=== PATIENT | male | born 1950 | race Two or more races ===

== ENCOUNTER → 2017-07-10 | Outpatient (CLI) | payer BC ==
--- NOTE | 2017-07-10 15:50 | RADIOLOGY REPORT (SQ) ---
EXAM DESCRIPTION: MRI THORACIC SPINE WITHOUT COMPLETED DATE/TIME: 07/10/2017 2:59 pm REASON FOR STUDY: WEDGE COMPRESSION FRACTURE OF UNSP THORACIC VERTEBRA, INIT (S22.000A) S22.000A WE DGE COMPRESSION FRACTURE OF UNSP THORACIC VERTEBR COMPARISON: None. TECHNIQUE: Sagittal and Axial imaging includes T1, T2, STIR and gradient echo sequences. LIMITATIONS: Patient motion. FINDINGS: LOCALIZER: No worrisome findings. ALIGNMENT: Normal. VERTEBRAE: Intact. BONE MARROW: Normal. No marrow replacement or reactive changes. HARDWARE: None in the spine. CORD: Normal in size and signal intensity. SOFT TISSUES: No soft tissue masses. THORACIC DISCS T1-T12: No significant spinal stenosis or exit foraminal stenosis. LOWER CERVICAL: Incompletely imaged. No significant spinal stenosis or exit foraminal stenosis. UPPER LUMBAR: See separate report of the same date. OTHER: No other significant finding. IMPRESSION: No acute findings in the thoracic spine. TECHNICAL DOCUMENTATION: JOB ID: [id number] [employer]- All Rights Reserved
--- NOTE | 2017-07-10 15:56 | RADIOLOGY REPORT (SQ) ---
EXAM DESCRIPTION: MRI LUMBAR SPINE WITHOUT COMPLETED DATE/TIME: 07/10/2017 2:59 pm REASON FOR STUDY: WEDGE COMPRESSION FRACTURE OF UNSP LUMBAR VERTEBRA, INIT (S32.000) S22.000A WEDGE COMPRESSION FRACTURE OF UNSP THORACIC VERTEBR COMPARISON: 08/20/2016 TECHNIQUE: Sagittal and Axial imaging includes T1, T2, STIR and gradient echo sequences. Coronal T2/ HASTE imaging. LIMITATIONS: Patient motion. FINDINGS: VISUALIZED UPPER ABDOMEN: Limited evaluation. No acute or suspicious findings suggested. SEGMENTATION: No transitional anatomy. The lowest well-developed disc space is labeled L5-S1. ALIGNMENT: Slight anterolisthesis L2 relative to L1. VERTEBRAE: Interval kyphoplasty at L 1. No acute compression fracture. BONE MARROW: Mild reactive edema superior endplate L2. This is unchanged. DISC SIGNAL: Desiccation multiple levels. POSTERIOR ELEMENTS: Intact. HARDWARE: None in the spine. CORD AND CONUS: Normal in size and signal intensity. Conus at the appropriate level. SOFT TISSUES: No aortic aneurysm seen. No bulky retroperitoneal adenopathy or mass. No paraspinal mas s or fluid. L1-L2: Mild stenosis due to disc bulge. L2-L3: No significant spinal stenosis or exit foraminal stenosis. L3-L4: No significant spinal stenosis or exit foraminal stenosis. L4-L5: Mild stenosis due to disc bulge, ligament thickening and facet arthropathy. L5-S1: Disc bulge and facet arthropathy. No significant spinal stenosis or exit foraminal stenosis. LOWER THORACIC: See separate report of the same date. SACRUM: Visualized upper sacrum intact. OTHER: No other significant findings. IMPRESSION: Mild degenerative changes status post kyphoplasty L 1. No evidence of acute compression fracture. TECHNICAL DOCUMENTATION: JOB ID: [id number]- All Rights Reserved
== END ==
LOC: RAD 13:30
PROVIDERS: ATTEND Student in an Organized Health Care Education/Training Program
DX: S22.000A Wedge compression fracture of unspecified thoracic vertebra, initial encounter for closed fracture (principal); S32.000A Wedge compression fracture of unspecified lumbar vertebra, initial encounter for closed fracture; X58.XXXA Exposure to other specified factors, initial encounter; Y93.9 Activity, unspecified; Y92.9 Unspecified place or not applicable
CPT/HCPCS: 72146; 72148

== ENCOUNTER 2017-11-19 00:03 | Emergency (ER) | payer BC ==
[2017-11-19] MEDS ORDERED: NORMAL SALINE 1000 ML 1,000 ML IV ONE (00:10)
[2017-11-19] MEDS ORDERED: ONDANSETRON HCL INJ/PF 4 MG/2 ML SDV IV ONE (00:10)
[2017-11-19] MEDS ORDERED: NICOTINE 14 MG/24 HR PATCH.TD24 TD ONE (00:10)
--- NOTE | 2017-11-19 00:15 | ER Document Report ---
ED General - General Stated Complaint: OTHER Time Seen by Provider: 11/19/17 00:09 Cannot obtain history due to: Intoxicated Notes: Patient is a 67-year-old male, unknown past medical history who presents acutely intoxicated. Patient was found to be in the parking lot of an [employer] liquor store. He was [facility] to [facility] so [facility] were [facility]. Patient apparently also fell today while at home striking the right side of his head. His apparently was unable to get him up off the floor. Patient arrives intoxicated, resisting care but polite toward staff. He is unable to provide additional meaningful history only stating "I am fine, I do not need anything, let me go home". - Related Data Allergies/Adverse Reactions: Unable to Assess Allergy (Unverified 11/19/17 01:12) Past Medical History - General Information source: Emergency Med Personnel Cannot obtain history due to: Intoxicated - Social History Smoking Status: Current Every Day Smoker Frequency of alcohol use: Occasional Drug Abuse: None Lives with: Spouse/Significant other Family History: Reviewed & Not Pertinent Review of Systems - Review of Systems -: Yes ROS unobtainable due to patient's medical condition Physical Exam - Vital signs Vitals: Resp Pulse Ox 14 97 11/19/17 00:07 11/19/17 00:07 Interpretation: Normal Notes: PHYSICAL EXAMINATION: GENERAL: Polite on contact but intoxicated. HEAD: There is bruising and a superficial abrasion over the right forehead, abrasion over the level of the right eyebrow EYES: Pupils equal round and reactive to light, extraocular movements intact, sclera anicteric, conjunctiva are normal. ENT: nares patent, oropharynx clear without exudates. Dry mucous membranes. NECK: Normal range of motion, supple without lymphadenopathy LUNGS: Breath sounds clear to auscultation bilaterally and equal. No wheezes rales or rhonchi. HEART: Regular rate and rhythm without murmurs ABDOMEN: Soft, nontender, normoactive bowel sounds. No guarding, no rebound. No masses appreciated. EXTREMITIES: Normal range of motion, no pitting or edema. No cyanosis. NEUROLOGICAL: No focal neurological deficits. Moves all extremities spontaneously. PSYCH: Intoxicated SKIN: Warm, Dry, normal turgor, facial abrasion as above Course - Re-evaluation Re-evalutation: 11/19/17 00:14 Patient presents acutely intoxicated, after apparently falling and striking the right side of his head. He was found intoxicated in a parking lot of a liquor store. He was brought to the emergency department as he was unable to prove to the EMS that he had capacity. Patient arrives profoundly intoxicated, oriented to person only. He has a small abrasion over his right eyebrow but no additional findings are notable on exam. IV access will be established, will obtain a CT of the head and cervical spine as patient is not able to clinically cleared at this time. Will provide IV fluids, antiemetics as patient is quite nauseated. Also obtain basic laboratories. Will continue to monitor the patient closely. 1 of the paramedics on scene states that a family member noted that the patient had been voicing passive suicidal ideation while intoxicated. Will reassess this concern when the patient is sober. 11/19/17 00:53 Patient continues to be heavily intoxicated, is refusing all imaging of the head and neck. He has also refused an EKG. I have tried to assess the patient for capacity at the bedside. He is unable to verbalize to me why he does not want a CT scan. He does not clearly understand what I am looking for, or the possibility that he could have an intracranial bleed resulting in or a devastating neurologic complication. Patient is stating he does not want anything, wants to go home. He is intermittently try to get up out of bed and is a very high risk for falls. We have made multiple attempts to redirect the patient, provide verbal guidance and have given him multiple opportunities to demonstrate capacity to refuse these studies. Unfortunately, at this time patient does not have capacity to refuse these diagnostic tests and I cannot definitively exclude an intracranial injury as the etiology of his level of confusion. Will therefore provide a small dose of IV haloperidol to calm the patient and allow us to obtain these studies. These conversations have been witnessed by the nurse Gray who is helping to care for this patient. 11/19/17 01:35 Patient has become increasingly agitated although we were able to successfully obtain a CT scan of his head and neck. He is pushing staff and becoming more agitated. Thankfully he was able to be verbally redirected 11/19/17 02:30 Patient is resting calmly, alcohol is markedly elevated at 124 some findings on laboratories to suggest chronic alcohol use particularly given the degree of alcohol elevation in a patient who is otherwise awake but obviously intoxicated. He also has hypernatremia again suggestive of a component of chronic alcohol use. CT scan of the head and cervical spine is unremarkable. Will wait until patient is clinically sober. 11/19/17 04:11 Patient continues to rest comfortably. Will wait until the patient wakes up, can ambulate and tolerate oral intake. Will also reassess suicidality at the time. Care has been transferred to Dr. Barajas at this time - Vital Signs Vital signs: Temp Pulse Resp BP Pulse Ox 14 151/104 H 92 11/19/17 03:00 11/19/17 00:24 11/19/17 00:24 - Laboratory Result Diagrams: 11/19/17 00:13 11/19/17 01:00 Laboratory results interpreted by me: 11/19/17 11/19/17 00:13 01:00 Hgb 17.3 H Hct 51.2 H MCV 101 H MCH 34.0 H RDW 14.2 H Lymphocytes % 46.3 H Sodium 151.3 H Potassium 3.4 L Chloride 111 H AST 125 H ALT 81 H Salicylates < 1.0 L Acetaminophen < 10 L Serum Alcohol 424 H* - Diagnostic Test Radiology reviewed: Image reviewed, Reports reviewed Radiology results interpreted by me: 11/19/17 02:30 CT head: No acute intracranial bleed - EKG Interpretation by Me Additional EKG results interpreted by me: 11/19/17 01:13 Sinus rhythm. Rate 86. No ST elevations or depressions. QTC is 484. Discharge - Discharge Clinical Impression: Hypernatremia, Transaminitis Alcohol intoxication Qualifiers: Complication of substance-induced condition: uncomplicated Qualified Code(s): F10.920 - Alcohol use, unspecified with intoxication, uncomplicated Head trauma Qualifiers: Encounter type: initial encounter Qualified Code(s): S09.90XA - Unspecified injury of head, initial encounter Condition: Fair Disposition: HOME, SELF-CARE Additional Instructions: You were seen in the emergency department today for being intoxicated. Being seen in the emergency department after drinking alcohol is a serious indicator that you have a problem with alcohol. Please consider seeking help with your alcohol use. The CT scans of yourr head and neck that were taken today due to your fall are normal. Please return to the emergency room immediately if you experience any concerning symptoms including high fevers, severe headache, chest pain, difficulty breathing, abdominal pain, slurred speech, numbness or weakness in your arms or legs, or any other symptom that concerns you.
[2017-11-19 00:27] LABS: ABSOLUTE LYMPHOCYTES (AUTO) 2.8 10^3/uL (0.5-4.7); ABSOLUTE MONOCYTES (AUTO) 0.3 10^3/uL (0.1-1.4); ABSOLUTE NEUT (AUTO) 2.9 10^3/uL (1.7-8.2); BASOPHILS % (AUTO) 0.8 % (0-2); EOSINOPHILS % (AUTO) 0.4 % (0-6); HEMATOCRIT 51.2 % (37.9-51.0); HEMOGLOBIN 17.3 g/dL (13.5-17.0); LYMPHOCYTES % (AUTO) 46.3 % (13-45); MEAN CORPUSCULAR HGB CONC 33.7 g/dL (32.0-36.0); MEAN CORPUSCULAR VOLUME 101 fl (80-97); MONOCYTES % (AUTO) 4.9 % (3-13); PLATELET COUNT 286 10^3/uL (150-450); RED BLOOD COUNT 5.08 10^6/uL (4.35-5.55); RED CELL DISTRIBUTION WIDTH 14.2 % (11.5-14.0); SEGMENTED NEUTROPHILS % (AUTO) 47.6 % (42-78); TOTAL CELLS COUNTED % (AUTO) 100 %
[2017-11-19] MEDS ORDERED: HALOPERIDOL LACTATE INJ 5 MG/1 ML VIAL ONE (00:52)
[2017-11-19] MEDS ORDERED: HALOPERIDOL LACTATE INJ 5 MG/1 ML VIAL IV ONE (00:53)
[2017-11-19 01:30] LABS: ALANINE AMINOTRANSFERASE 81 U/L (21-72); ALBUMIN 4.2 g/dL (3.5-5.0); ALKALINE PHOSPHATASE 76 U/L (38-126); ANION GAP 14 (5-19); ASPARTATE AMINO TRANSFERASE 125 U/L (17-59); BILIRUBIN,DIRECT 0.2 mg/dL (0.0-0.4); BILIRUBIN,TOTAL 0.2 mg/dL (0.2-1.3); BLOOD UREA NITROGEN 14 mg/dL (7-20); CALCIUM 8.6 mg/dL (8.4-10.2); CARBON DIOXIDE 26 mmol/L (22-30); CHLORIDE 111 mmol/L (98-107); GLUCOSE 91 mg/dL (75-110); POTASSIUM 3.4 mmol/L (3.6-5.0); SODIUM 151.3 mmol/L (137-145); TOTAL PROTEIN 7.4 g/dL (6.3-8.2)
[2017-11-19 01:32] LABS: ACETAMINOPHEN < 10 ug/mL (10-30); SALICYLATE < 1.0 mg/dL (2.0-20.0)
[2017-11-19] MEDS ORDERED: MIDAZOLAM 2 MG/2 ML INJ IV ONE (01:35)
[2017-11-19] MEDS ORDERED: MIDAZOLAM 2 MG/2 ML INJ ONE (01:36)
[2017-11-19 01:39] LABS: ALCOHOL 424 mg/dL (NONE DETECTED)
--- NOTE | 2017-11-19 01:59 | RADIOLOGY REPORT (SQ) ---
EXAM DESCRIPTION: CT HEAD WITHOUT CLINICAL HISTORY: fall COMPARISON: None available TECHNIQUE: Axial CT of the head obtained from the skull apex to the skull base without contrast. FINDINGS: No acute intracranial hemorrhage identified. No mass, mass effect, shift of the midline, abnormal extra-axial fluid collection or CT evidence of acute ischemic change identified. The ventricular system and sulcal spaces are mildly enlarged compatible with mild cerebral atrophy. Scattered areas of hypodensity throughout the supratentorial white matter are nonspecific and may be related to chronic small vessel ischemic change. The visualized paranasal sinuses and the mastoids are clear. No skull fracture identified. Visualized orbits and globes are unremarkable. Atherosclerotic calcification of the intracranial internal carotid arteries. DLP:1267.44 mGy-cm IMPRESSION: 1. No acute intracranial abnormality by CT criteria. This exam was performed according to our departmental dose-optimization program, which includes automated exposure control, adjustment of the mA and/or kV according to patient size and/or use of iterative reconstruction technique.
--- NOTE | 2017-11-19 02:13 | RADIOLOGY REPORT (SQ) ---
EXAM DESCRIPTION: CT CERVICAL SPINE WITHOUT CLINICAL HISTORY: fall COMPARISON: None available TECHNIQUE: Axial CT of the cervical spine obtained without contrast. FINDINGS: Alignment of the cervical spine is maintained without evidence of subluxation. The atlantoaxial, atlantodental, and occipitoatlantal intervals are preserved. No fracture identified. Vertebral body height preserved. Prevertebral soft tissues are unremarkable. Mild loss of intervertebral disc height at C5/6 with endplate spondylosis, uncovertebral, and posterior endplate spurring. Mild facet arthropathy. Mild neural foraminal renal narrowing at this level. No no definite central canal narrowing. Visualized skull base is intact. No fracture of the visualized facial bones. Visualized mastoid air cells and paranasal sinuses are well aerated. Visualized thyroid is unremarkable. No cervical lymphadenopathy. No pneumothorax in the visualized lung apices. Carotid artery atherosclerosis. DLP: 326.19 mGy-cm IMPRESSION: 1. No acute fracture or subluxation of the cervical spine. This exam was performed according to our departmental dose-optimization program, which includes automated exposure control, adjustment of the mA and/or kV according to patient size and/or use of iterative reconstruction technique.
[2017-11-19 10:54] VITALS: BP 125/74
--- NOTE | 2017-11-19 11:55 | EKG REPORT ---
SEVERITY:- BORDERLINE ECG - SINUS RHYTHM PROBABLE LEFT ATRIAL ABNORMALITY BORDERLINE PROLONGED QT INTERVAL : Confirmed by: Nubia Mann MD 19-Nov-2017 11:53:32
== END 2017-11-19 11:13 | disposition home or self-care (01) ==
LOC: MERGE 00:03 → EEVIPCON 00:03 → ER 00:03
DX: F10.120 Alcohol abuse with intoxication, uncomplicated (principal); Y90.6 Blood alcohol level of 120-199 mg/100 ml; S00.83XA Contusion of other part of head, initial encounter; S00.211A Abrasion of right eyelid and periocular area, initial encounter; W19.XXXA Unspecified fall, initial encounter; Y92.009 Unspecified place in unspecified non-institutional (private) residence as the place of occurrence of the external cause; R74.0 Nonspecific elevation of levels of transaminase and lactic acid dehydrogenase [LDH]; E87.0 Hyperosmolality and hypernatremia; F17.200 Nicotine dependence, unspecified, uncomplicated
CPT/HCPCS: 99285; 96361; 96374; 96375; 36415; 80307 ×3; 85025; 80053; 70450; 72125; J1630; J2405; J7030; 93005; 93010

== ENCOUNTER → 2020-04-17 | Outpatient (CLI) | payer BC | LOC: RDC 13:53 | PROVIDERS: ATTEND Nurse Practitioner Family | DX: Z53.9 Procedure and treatment not carried out, unspecified reason (principal) | CPT/HCPCS: 87635; C9803 ==

== ENCOUNTER → 2020-09-22 | Outpatient (CLI) | payer MEDICARE, OTHER ==
--- NOTE | 2020-09-22 15:53 | RADIOLOGY REPORT (SQ) ---
EXAM DESCRIPTION: CT CHEST WITH IMAGES COMPLETED DATE/TIME: 09/22/2020 1:53 pm REASON FOR STUDY: R14.0 ABDOMINAL DISTENSION R14.0 ABDOMINAL DISTENSION (GASEOUS) R05 COUGH R10.9 UNSPECIFIED ABDOMINAL PAIN COMPARISON: None. TECHNIQUE: CT scan of the chest performed using helical scanning technique with dynamic intravenous contrast injection. Images reviewed with lung, soft tissue and bone windows. Reconstructed coronal and sagittal MPR and MIP images reviewed. All images stored on PACS. All CT scanners at this facility use dose modulation, iterative reconstruction, and/or weight based d osing when appropriate to reduce radiation dose to as low as reasonably achievable (ALARA). [facility]: Dose Right [facility]: CareDose [facility]: Dose Right [facility]: Teradose 4D [facility]: [employer]loop CONTRAST TYPE AND DOSE: contrast/concentration: Isovue 350.00 mmol/ml; Total Contrast Delivered: 80. 0 ml; Total Saline Delivered: 40.0 ml RENAL FUNCTION: Creatinine 1.0 RADIATION DOSE: CT Rad equipment meets quality standard of care and radiation dose reduction techniq ues were employed. CTDIvol: 6.4 - 8.2 mGy. DLP: 951 mGy-cm. . LIMITATIONS: None. FINDINGS: LUNGS AND PLEURA: 4 mm partially calcified nodule in the middle lobe image 83. No effusio ns. HILAR AND MEDIASTINAL STRUCTURES: No identified masses or abnormal nodes. HEART AND VASCULAR STRUCTURES: No aneurysm or dissection. No central pulmonary emboli. No pericardi al effusion. HARDWARE: None in the chest. UPPER ABDOMEN: See separate report of the CT of the abdomen. THYROID AND OTHER SOFT TISSUES: No masses. No adenopathy. BONES: No acute findings. OTHER: No other significant finding. IMPRESSION: 4 mm part solid nodule in the middle lobe. No acute findings. TECHNICAL DOCUMENTATION: JOB ID: [id number] Quality ID # [id number]: Final reports with documentation of one or more dose reduction techniques (e.g., Au tomated exposure control, adjustment of the mA and/or kV according to patient size, use of iterative reconstruction technique) 2010 [employer] All Rights Reserved Reading location - IP/workstation name: [email or web address]
--- NOTE | 2020-09-22 15:55 | RADIOLOGY REPORT (SQ) ---
EXAM DESCRIPTION: CT ABD/PELVIS WITH IV ORAL IMAGES COMPLETED DATE/TIME: 09/22/2020 1:53 pm REASON FOR STUDY: R14.0 ABDOMINAL DISTENSION R14.0 ABDOMINAL DISTENSION (GASEOUS) R05 COUGH R10.9 UNSPECIFIED ABDOMINAL PAIN COMPARISON: None. TECHNIQUE: CT scan of the abdomen and pelvis performed with intravenous and oral contrast using deon veronica scanning technique with dynamic intravenous contrast injection. Images reviewed with lung, soft t issue, and bone windows. Reconstructed coronal and sagittal MPR images reviewed. Delayed images for e valuation of the urinary system also acquired. All images stored on PACS. All CT scanners at this facility use dose modulation, iterative reconstruction, and/or weight based d osing when appropriate to reduce radiation dose to as low as reasonably achievable (ALARA). [facility]: Dose Right [facility]: CareDose [facility]: Dose Right [facility]: Teradose 4D [facility]: [employer] RENAL FUNCTION: Creatinine 1.0 RADIATION DOSE: . LIMITATIONS: Motion. FINDINGS: LOWER CHEST: See separate report of the CT of the chest. LIVER: Normal size. No masses. No dilated ducts. SPLEEN: Normal size. No focal lesions. PANCREAS: No masses. No significant calcifications. No adjacent inflammation or peripancreatic fluid collections. Pancreatic duct not dilated. GALLBLADDER: No identified stones by CT criteria. No inflammatory changes to suggest cholecystitis. ADRENAL GLANDS: No significant masses or asymmetry. RIGHT KIDNEY AND URETER: Small upper pole cyst. No solid masses. No significant calcifications. No hydronephrosis or hydroureter. LEFT KIDNEY AND URETER: No solid masses. No significant calcifications. No hydronephrosis or hydr oureter. AORTA AND VESSELS: Ectasia. No aneurysm. RETROPERITONEUM: No retroperitoneal adenopathy, hemorrhage or masses. BOWEL AND PERITONEAL CAVITY: No obstruction. No visualized masses. No free fluid. No inflammatory ch anges or thickening of bowel wall. APPENDIX: Not visualized. PELVIS: No significant masses. Normal bladder. No free fluid. ABDOMINAL WALL: No masses. No hernias. BONES: No acute findings. Prior kyphoplasty L1. OTHER: No other significant finding. IMPRESSION: No acute findings. TECHNICAL DOCUMENTATION: JOB ID: [id number] Quality ID # [id number]: Final reports with documentation of one or more dose reduction techniques (e.g., Au tomated exposure control, adjustment of the mA and/or kV according to patient size, use of iterative reconstruction technique) 2010 [employer]- All Rights Reserved Reading location - IP/workstation name: [email or web address] [facility] [email or web address]
== END ==
LOC: RAD 13:30
PROVIDERS: ATTEND Family Medicine
DX: R14.0 Abdominal distension (gaseous) (principal); R10.9 Unspecified abdominal pain; R05 Cough; R91.1 Solitary pulmonary nodule
CPT/HCPCS: 71260; 74177; 82565

== ENCOUNTER → 2020-10-07 | Outpatient (CLI) | payer MEDICARE, OTHER ==
--- NOTE | 2020-10-07 14:26 | RADIOLOGY REPORT (SQ) ---
EXAM DESCRIPTION: NM HIDA SCAN WITH CCK IMAGES COMPLETED DATE/TIME: 10/07/2020 9:16 am REASON FOR STUDY: (R10.9)UNSPECIFIED ABDOMINAL PAIN R10.9 UNSPECIFIED ABDOMINAL PAIN COMPARISON: None. RADIONUCLIDE AND DOSE: DOSAGE RADIONUCLIDE: 5.38 millicuries Tc99m Mebrofenin. DOSAGE CCK: 1.5 micrograms. DOSAGE MORPHINE: None required. The route of agent administration: Intravenous TECHNIQUE: Serial images of the upper abdomen were obtained at a rate of 2 frames per minute for up to 60 minutes after the injection of the radionuclide. After 60 minutes CCK was injected and CR imag es of the upper abdomen were obtained and a radial 1 frame per minute for 18 minutes. LIMITATIONS: None. FINDINGS: There is prompt uptake and excretion of the radiotracer by the hepatic parenchyma with tra nsient visualization of the biliary ducts. Activity is noted within the gallbladder within 15 minute s of injection of the radiotracer. After injection of CCK there is prompt emptying of the gallbladde r with a calculated ejection fracture of 93% at 16 minutes post injection of the CCK. The patient's symptoms were not reproduced with CCK. IMPRESSION: 1. No scintigraphic evidence of acute cholecystitis. 2. Normal gallbladder ejection fracture. TECHNICAL DOCUMENTATION: JOB ID: [id number] 2010 [employer]- All Rights Reserved Reading location - IP/workstation name: [email or web address]
== END ==
LOC: RAD 07:30
PROVIDERS: ATTEND Family Medicine
DX: R10.84 Generalized abdominal pain (principal)
CPT/HCPCS: 78227; J2805; A9537; Q9969

== ENCOUNTER → 2020-10-09 | Outpatient (CLI) | payer MEDICARE, OTHER ==
[~2020-10-09] MED LIST: COVID-19 VACCINE (PFIZER)/PF 30 MCG/0.3 ML VIAL IM ONE; EPINEPHRINE INJ/PF 1 MG/1 ML AMPULE IM PRN
== END ==
LOC: EMPHEALTH 13:18
PROVIDERS: ATTEND Internal Medicine
DX: Z23 Encounter for immunization (principal)
CPT/HCPCS: 91300

== ENCOUNTER → 2020-10-30 | Outpatient (CLI) | payer MEDICARE, OTHER | LOC: EMPHEALTH 13:15 | PROVIDERS: ATTEND Internal Medicine | DX: Z23 Encounter for immunization (principal) | CPT/HCPCS: 91300 ==